=== PATIENT | male | born 1985 | race Caucasian/White ===

== ENCOUNTER 2017-12-02 21:47 | Observation (INO) | payer OTHER ==
[~2017-12-02] VITALS: Ht 190.5 cm; Wt 75.0 kg
[2017-12-02 22:38] LABS: BASO % 1 % (0-3); EOS # 0.1 x10^3/uL (0.0-0.7); EOS % 1 % (0-3); HEMATOCRIT 47.1 % (39.0-53.0); HEMOGLOBIN 15.7 g/dL (13.0-17.5); LYMPH # 1.9 x10^3/uL (1.0-4.8); LYMPH % 28 % (24-48); MEAN CORPUSCULAR HEMOGLOBIN 30 pg (25-35); MEAN CORPUSCULAR HGB CONC 33 g/dL (31-37); MEAN CORPUSCULAR VOLUME 89 fL (79-100); MONO # 0.6 x10^3/uL (0.0-1.1); MONO % 10 % (0-9); NEUT % 60 % (31-73); PLATELET COUNT 199 x10^3/uL (140-400); RED BLOOD COUNT 5.31 x10^6/uL (4.30-5.70); RED CELL DISTRIBUTION WIDTH 12.8 % (11.5-14.5); WHITE BLOOD COUNT 6.6 x10^3/uL (4.0-11.0)
--- NOTE | 2017-12-02 22:49 | PHYS DOC ---
General Chief Complaint: FATIGUE Stated Complaint: VISION LOSS,HEADACHE,NUMBNESS Time Seen by MD: 21:57 Source: patient Exam Limitations: no limitations Problems: History of Present Illness Initial Comments Patient is a 32-year-old male brought to the ED by his mom with what they initially felt was TIA symptoms. Patient states that he had a less than 24-hour period of weakness this past year and when he followed up with his PCP Dr. Gagnon was diagnosed with possible TIA. Patient states that approximately 1.5 hours prior to ED arrival he noticed his arms to be heavy, he had a global mild dull achy headache and difficulty thinking. He says he felt overall weak and was concerned that he may be having another TIA or stroke. Patient has no risk factors for CVA, on arrival ED staff did initiate stroke protocol and NIH stroke scale score was 0. CT of the head was called to me by the radiologist as negative, on primary survey the patient had no lateralizing neuro deficits and appeared to be in no apparent distress, his headache had resolved upon arrival. ED vitals: 98.4, 89, 18, 144/88, 96% room air Patient follows with Dr. Gagnon Allergies: Coded Allergies: No Known Drug Allergies (Unverified , 12/02/17) Past Medical History Medical History: other (questionable TIA history) Surgical History: noncontributory Social History Smoker: non-smoker Alcohol: none Drugs: none Review of Systems Constitutional: denies chills, denies diaphoresis, denies fever, malaise EENTM: see HPI, denies eye pain, denies blurred vision, denies double vision, denies ear pain, denies ear discharge Respiratory: denies cough, denies shortness of breath Cardiovascular: denies chest pain, denies palpitations Gastrointestinal: denies diarrhea, denies nausea, denies vomiting Musculoskeletal: see HPI Psychiatric/Neurological: see HPI Hematologic/Lymphatic: denies blood clots, denies easy bleeding, denies easy bruising Physical Exam General Appearance: WD/WN, no apparent distress Eyes: bilateral eye normal inspection, bilateral eye PERRL, bilateral eye EOMI Ear, Nose, Throat: hearing grossly normal, normal ENT inspection, normal pharynx Neck: non-tender, supple Respiratory: normal breath sounds, no respiratory distress Cardiovascular: normal peripheral pulses, regular rate, rhythm Gastrointestinal: non tender, soft Back: no CVA tenderness, no vertebral tenderness Extremities: normal range of motion, non-tender, normal inspection, no calf tenderness, pelvis stable Neurologic/Psychiatric: fisher mussel II-XII nml as tested, no motor/sensory deficits, alert, normal mood/affect, oriented x 3 Skin: normal color, warm/dry Orders, Labs, Meds EKG: Normal sinus rhythm 62 bpm, no ST segment elevation interpreted by me. PATIENT: AZEEM ACSTRO ACCOUNT: [id number] : 1985 LOCATION: ER AGE: 32 SEX: M EXAM STATUS: PRE ER ORD. PHYSICIAN: IZABELLA NAVAS DO REASON: tia PROCEDURE: CT CODE STROKE HEAD WO PQRS Compliance Statement: One or more of the following individualized dose reduction techniques were utilized for this examination: 1. Automated exposure control 2. Adjustment of the mA and/or kV according to patient size 3. Use of iterative reconstruction technique CT HEAD WITHOUT CONTRAST History: Left sided weakness, headache tonight. Comparison: None. Procedure: Axial images are obtained of the head from the skull base through the vertex without IV contrast. Findings: The ventricles and sulci are normal for the patient's age. No mass-effect, midline shift, hemorrhage, extra-axial fluid collection, or obvious acute infarction is identified. Basilar cisterns are patent. Bone windows demonstrate no acute calvarial abnormality. The visualized paranasal sinuses are clear. Mastoid air cells are well aerated. IMPRESSION: No acute intracranial abnormality. FOR INTERNAL CODING PURPOSES Critical result: Findings discussed with IZABELLA NAVAS at 12/02/2017 11:10 PM. RESULT CODE: (C) Electronically signed by: Mick Tay MD (12/02/2017 11:10 PM) [facility] DICTATED AND SIGNED BY: MICK TAY MD DATE: 12/02/17 4192 CC: IZABELLA NAVAS DO ~ AP chest: Interpreted by me, no acute cardiopulmonary process Reassuring labs overall, abnormals: AST 118, ALT 128, creatine kinase 3237 1 L normal saline IV bolus initiated for patient with rhabdomyolysis. I discussed rhabdomyolysis of possible causes, the patient has not had any trauma and is not an abuser of drugs. He does work out regularly and has recently started taking some branch chain amino acids however states that his workout intensities and durations have not increased. I discussed the need for inpatient admission and hydration and to follow his CKs. He is agreeable to admission, I discussed his history, ED presentation and results with Dr. Brown over the phone who accepts inpatient MedSurg admission for continued IV hydration and monitoring of labs. Second liter normal saline IV bolus initiated in the ED prior to getting him transferred up to the floor. Impressions: Rhabdomyolysis Elevated LFTs 0004: Patient discussed with Dr. Brown who accepts inpatient MedSurg admission for hydration and to follow labs. Departure Time of Disposition: 00:04 Disposition: ADMITTED INPATIENT Diagnosis: rhabdomyolysis, elevated LFTs Condition: STABLE Additional Instructions: Inpatient MedSurg admission Dr. Brown is accepting IZABELLA NAVAS DO Dec 02, 2017 22:49
[2017-12-02 23:05] LABS: BARBITURATES NEG (NEG); BENZODIAZEPINES NEG (NEG); CANNABINOIDS NEG (NEG); COCAINE NEG (NEG); METHADONE NEG (NEG); OPIATES NEG (NEG); PHENCYCLIDINE NEG (NEG)
[2017-12-02 23:07] LABS: AMPHETAMINE/METHAMPHETAMINE NEG (NEG)
[2017-12-02 23:08] LABS: ALBUMIN 4.3 g/dL (3.4-5.0); ALBUMIN/GLOBULIN RATIO 1.3 (1.0-1.7); C REACTIVE PROTEIN 1.1 mg/L (0-3.3); CALCIUM 9.4 mg/dL (8.5-10.1); CREATININE 1.1 mg/dL (0.7-1.3); GFR 77.6; POTASSIUM 3.8 mmol/L (3.5-5.1); TOTAL BILIRUBIN 0.6 mg/dL (0.2-1.0); TOTAL PROTEIN 7.7 g/dL (6.4-8.2)
--- NOTE | 2017-12-02 23:14 | RAD ---
[facility] Compliance Statement: One or more of the following individualized dose reduction techniques were utilized for this examination: 1. Automated exposure control 2. Adjustment of the mA and/or kV according to patient size 3. Use of iterative reconstruction technique CT HEAD WITHOUT CONTRAST History: Left sided weakness, headache tonight. Comparison: None. Procedure: Axial images are obtained of the head from the skull base through the vertex without IV contrast. Findings: The ventricles and sulci are normal for the patient's age. No mass-effect, midline shift, hemorrhage, extra-axial fluid collection, or obvious acute infarction is identified. Basilar cisterns are patent. Bone windows demonstrate no acute calvarial abnormality. The visualized paranasal sinuses are clear. Mastoid air cells are well aerated. IMPRESSION: No acute intracranial abnormality. FOR INTERNAL CODING PURPOSES Critical result: Findings discussed with IZABELLA NAVAS at 12/02/2017 11:10 PM. RESULT CODE: (C) Electronically signed by: Mick Tay MD (12/02/2017 11:10 PM) [facility]
[2017-12-02] MEDS ORDERED: IV NORMAL SALINE 1,000ML 1,000 ML IV SCH (23:45)
--- NOTE | 2017-12-02 23:46 | EKG ---
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
[2017-12-03] MEDS ORDERED: ONDANSETRON PF 4 MG/2 ML VIAL. IV PRN (00:15)
[2017-12-03] MEDS ORDERED: IV NORMAL SALINE 1,000ML 1,000 ML IV ONE (01:30)
[2017-12-03 01:34] VITALS: BP 131/79
[2017-12-03] MEDS ORDERED: traMADol 50 MG TABLET PO ONE (02:15)
[2017-12-03] MEDS: IV NORMAL SALINE 1,000ML 1,000 ML IV SCH ×2 (02:16→06:40)
[2017-12-03 05:53] VITALS: BP 113/69
--- NOTE | 2017-12-03 07:38 | RAD ---
AP chest, 12/02/2017: History: Left-sided weakness, headache The heart size is normal. No pulmonary infiltrates are seen. There is no evidence of pleural fluid. IMPRESSION: No acute cardiopulmonary abnormality is detected.
[2017-12-03 11:21] VITALS: BP 110/62
--- NOTE | 2017-12-04 02:19 | SSS ---
ADMIT DATE: 12/03/2017 DISCHARGE DIAGNOSES: 1. Rhabdomyolysis from excessive weight lifting. 2. Excessive intense weight lifting exercise. 3. Transient ischemic attack type symptoms probably from rhabdomyolysis and seasonal headaches. HOSPITAL COURSE: A 32-year-old male who was brought to Emergency Department by his mother. He admits to some heavy weightlifting with poor p.o. intake, but reported symptoms later on after working out feeling weak and felt his arms were heavy, dull, achy headache, difficulty thinking. Similar symptoms about 6 months ago and thought possibly was having a TIA. The stroke protocol was initiated, but the stroke scale was 0. CT of the head was 0, but he was found to have an elevated CPK and was admitted for IV fluids. PAST MEDICAL HISTORY: Seasonal allergies. MEDICATIONS: None. 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 Nonsmoker, no alcohol, no drugs. REVIEW OF SYSTEMS: As per HPI at the present time, really has no symptoms at all during the interview. OBJECTIVE: VITAL SIGNS: Blood pressure 110/62, pulse 62, respirations 18, pulse ox 95% on room air, temperature 98.3. Height 75 inches, weight 165.44 pounds. GENERAL: Well appearing 32-year-old in no acute distress. HEENT: Pupils are equal, round, react to light. Extraocular muscles were intact. Nose was patent. Throat was clear. Tongue was midline. LUNGS: Clear to auscultation. CARDIOVASCULAR: Regular rhythm and rate. ABDOMEN: Soft, nontender. EXTREMITIES: Without edema. MUSCULOSKELETAL: Noted well-developed muscles of the back and abdomen. NEUROLOGIC: Follows directions and is intact. LABORATORY DATA: CBC normal. His troponins were normal. CPK initially 3237, repeated 1809, slightly elevated AST and ALT. D-dimer negative. Drug screen negative. CT of the head also negative. Chest x-ray was negative. ASSESSMENT: As above. PLAN: He was seen by Dr. Del Rosario. Push fluids. No weight lifting for a week. Must hydrate before weightlifting. Symptoms return, to come back. ELIO MCINTYRE DO DR: ELANA/flora JOB#: [id number] / [id number]
--- NOTE | 2017-12-05 20:23 | CONS ---
DATE OF CONSULTATION: 12/03/2017 NEUROLOGY CONSULTATION REFERRING PHYSICIAN: Dr. Kim Blanc. REASON FOR CONSULTATION: Rule out TIA versus stroke. HISTORY OF PRESENT ILLNESS: This is a 32-year-old male, right-handed, was admitted through Emergency Room on account of sudden onset of weakness of the arms and described as heaviness and moderate headaches along with difficulty thinking. Symptoms started 2 hours prior to arriving to the Emergency Room. The patient denies visual disturbances, nausea, vomiting, chest pain, shortness of breath or palpitation, dysphagia, dysarthria, or vertigo. The patient stated he had similar episode a year ago. He was seen by his primary care physician, Dr. Gagnon and he was told that he probably had a TIA. On arrival, the patient was found to be dehydrated with severely elevated CPK. Initial nonenhanced head CT scan revealed no abnormalities. PAST MEDICAL HISTORY: Significant for asthma, seasonal allergies, pneumonia, and GI symptoms. PAST SURGICAL HISTORY: Positive for inguinal hernia repair. SOCIAL HISTORY: The patient denies smoking, alcohol drinking, or illicit drug use. FAMILY HISTORY: His father had heart disease and hypertension. His mother had colon cancer. CURRENT HOME MEDICATIONS: None. ALLERGIES: No known drug allergies. REVIEW OF SYSTEMS: As mentioned above in history of present illness. PHYSICAL EXAMINATION: GENERAL: Well-developed, well-nourished white male, not in acute distress. He weighs 165.4 pounds. VITAL SIGNS: Blood pressure is 113/69, respiratory rate 16, pulse is 69, temperature 97.7, oxygen saturation 98% on room air. HEENT: Normocephalic, atraumatic, otherwise unremarkable. NECK: Supple. Negative for carotid bruit, lymphadenopathy, or thyromegaly. LUNGS: Clear to A and P. CARDIOVASCULAR: Regular rhythm, normal S1, S2. There is no S3, S4, or murmur. ABDOMEN: Soft. Bowel sounds positive. EXTREMITIES: Negative for cyanosis, clubbing, or pitting edema. NEUROLOGIC: MENTAL STATUS: The patient is alert and oriented x 3. The speech is fluent. There is no language dysfunction. Memory, judgment, and abstract thinking are normal. The patient denies hallucination or delusion. CRANIAL NERVES: Visual griffith are full. The pupils are reactive to light and accommodation. The extraocular movements are intact. There is no nystagmus. There is no facial motor or sensory deficit. Hearing is intact bilaterally. The palate is elevated symmetrically. Sternocleidomastoid muscles are powerful bilaterally. The patient shrugs his shoulders symmetrically and protrudes his tongue in the midline without fasciculation or atrophy. MOTOR: No focal muscle bulk was seen. The tone was normal. The strength was 5/5 throughout. Sensory examination revealed normal pinprick, light touch, vibratory, and position senses. Deep tendon reflexes were symmetric and active without pathologic responses. Gait and coordinations were normal. LABORATORY DATA: CBC revealed white blood cells of 6.6, hemoglobin 15.7, hematocrit 47.1, platelet count 199,000. Chemistry revealed sodium of 141, potassium 3.8, chloride 103, CO2 of 28, BUN 20, creatinine 1.1, glucose 98. Lactic acid 1.6. Liver enzymes are elevated. AST is 118 and ALT is 128. Creatinine kinase is elevated at ____. Troponin level is normal and CRP is 1.1. Urine drug screen is negative. PT is 11.7, INR 1.1 with D-dimer of 0.34. DIAGNOSTIC: Initial nonenhanced CT scan revealed no abnormalities. Chest x-ray revealed no acute cardiopulmonary process. IMPRESSION: 1. Symptoms - like transient ischemic attack, but ____ with normal neurological examination. The most likely etiology of his symptoms, probably due to dehydration resulted from excessive weight lifting and sweating and consistent with rhabdomyolysis. 2. Seasonal allergies and tension type headaches, likely due to dehydration. RECOMMENDATIONS: 1. Hydration with IV fluids. 2. Avoid weight lifting for a week and continue to drink enough water. 3. Follow up with Dr. Burton in 2 weeks after discharge. M Arturo BURTON MD DR: MONICA/flora JOB#: [id number] / [id number] FLEX
--- NOTE | 2017-12-05 21:08 | CONS ---
DATE OF CONSULTATION: 12/03/2017 NEUROLOGICAL CONSULTATION REFERRING PHYSICIAN: Dr. Dr. Blanc. REASON FOR CONSULTATION: Rule out TIA versus stroke. HISTORY OF PRESENT ILLNESS: This is a 32-year-old right-handed male who was admitted through Emergency Room after he presented with a 2-hour symptoms like TIA consistent of generalized brief weakness of the upper extremities, dull headaches and difficulty thinking. The patient had a similar episode approximately a year ago, he was told by his primary care physician Dr. Gagnon that he might have a TIA. Currently, the patient denies dysarthria, dysphagia, chest pain, shortness of breath or palpitation, dizziness or paraesthesia. The patient admitted to being lifting weight excessively in recent days and not drinking enough water. He was found to be dehydrated with severely elevated CPK. Initial nonenhanced head CT scan was unremarkable. The patient was started on IV fluid. During this evaluation, the patient stated he is back to normal baseline. REVIEW OF SYSTEMS: As mentioned above in the history of present illness and also is positive for seasonal allergies. History of asthma, pneumonia. PAST SURGICAL HISTORY: Significant for inguinal hernia repair. SOCIAL HISTORY: The patient is . He denies smoking, alcohol drinking, or illicit drug use. FAMILY HISTORY: His father had heart disease and hypertension. Mother had colon cancer. CURRENT HOME MEDICATIONS: None known. DICTATION ENDS HERE. M Arturo BURTON MD DR: MONICA/flora JOB#: [id number] / [id number] FLEX
== END 2017-12-03 11:49 | disposition home or self-care (01) ==
LOC: ER 21:47 → 1 SOUTH 12-03 00:03 → INTOOBSV 12-03 00:03
PROVIDERS: ADMIT Family Medicine; ATTEND Family Medicine
DX: M62.82 Rhabdomyolysis (principal); G45.9 Transient cerebral ischemic attack, unspecified; J45.909 Unspecified asthma, uncomplicated; J30.2 Other seasonal allergic rhinitis
CPT/HCPCS: 36415; 70450; 71045; 80053; 80307; 82550; 83605; 84484; 85025; 85379; 85610; 85730; 86140; 93005; 96360; 96361; 99285; G0378; G0480; G0379; G0479; J7030